=== PATIENT | male | born 1970 | race Caucasian/White ===

== ENCOUNTER 2021-04-12 13:15 | Outpatient (RCR) | payer BC, OTHER, SELFPAY ==
[2021-04-12 13:59] LABS: INR 1.8; Prothrombin Time 21.6 Seconds (11.1-14.7)
== END 2021-07-11 23:59 | disposition home or self-care (01) ==
LOC: ANHLAB 13:15
DX: Z51.81 Encounter for therapeutic drug level monitoring (principal); Z79.01 Long term (current) use of anticoagulants
CPT/HCPCS: 36415; 85610